=== PATIENT | male | born 2000 | race Caucasian/White ===

== ENCOUNTER 2021-03-14 04:55 | Emergency (ER) | payer OTHER, SELFPAY ==
--- NOTE | ~2021-03-14 | CT_ITS ---
EXAMINATION: CT abdomen pelvis w con INDICATION: Perirectal abscess TECHNIQUE: Computed tomographic images of the abdomen and pelvis were obtained after the administrati on of 100 cc of Omnipaque 350 intravenous contrast. The dose-length product (DLP) was 599.22 mGy-cm. Automated exposure control and iterative reconstruction technique were employed. COMPARISON: None available FINDINGS: The lung bases are clear. The heart size is normal. The liver, spleen, pancreas, gallbladde r, and adrenal glands are normal. The kidneys are unremarkable. No pathologically enlarged abdominal lymph nodes are identified. Mildly enlarged pelvic lymph nodes are likely reactive. There is no free intraperitoneal gas or evidence of bowel obstruction. There is a 6.0 x 3.7 x 6.4 cm subcutaneous absc ess of the pelvis overlying the sacrum. There is edematous stranding of the surrounding subcutaneous fat. IMPRESSION: 1. Subcutaneous abscess of the pelvis overlying the sacrum measuring up to 6.4 cm. Reviewed, dictated and finalized at location A.
[2021-03-14 04:57] VITALS: BP 135/83; PULSE 60; RESP 16; TEMP 36.8; O2SAT 95
--- NOTE | 2021-03-14 05:41 | ED.SKABFB ---
HPI - Skin/Abscess/Foreign Bdy General Chief complaint: Skin/Abscess/Foreign Body Stated complaint: pt has a boil on butt area Time Seen by Provider: 03/14/21 05:05 Source: patient Mode of arrival: ambulatory Limitations: no limitations History of Present Illness HPI narrative: Patient is a 20-year-old male complaining of a tender swollen red area on his buttocks and sacral area that started 5 days ago and worse today. Patient also states that he had a fever last night. MD complaint: abscess/boil Related Data Allergies Allergy/AdvReac Type Severity Reaction Status Date / Time No Known Allergies Allergy Verified 03/14/21 06:04 Review of Systems Review of Systems: All systems reviewed & are unremarkable except as noted in HPI and below Constitutional: Constitutional: Denies body ache(s), Denies excessive sweating, Denies fatigue, Denies headache(s), Denies lethargy, Denies malaise, Denies weakness and Denies weight loss Eyes: Eyes: Denies blurry vision, Denies change in vision and Denies loss of vision ENT: Denies dizziness, Denies ear discharge, Denies headache(s), Denies lip swelling, Denies epistaxis, Denies nasal congestion, Denies neck pain, Denies throat swelling and Denies tongue swelling Cardiovascular: Cardiovascular: Denies chest pain, Denies chest pain at rest, Denies chest pain with activity, Denies diaphoresis, Denies rapid heart rate, Denies edema, Denies irregular heart rhythm, Denies lightheadedness, Denies palpitations, Denies dyspnea and Denies dyspnea on exertion Respiratory: Respiratory: Denies chest congestion, Denies cough, Denies hemoptysis, Denies dyspnea and Denies dyspnea on exertion Gastrointestinal: Gastrointestinal: Denies abdominal pain, Denies melena, Denies hematochezia, Denies diarrhea, Denies nausea, Denies vomiting and Denies hematemesis Musculoskeletal: Musculoskeletal: Denies abnormal gait, Denies deformity, Denies joint swelling, Denies limited range of motion, Denies neck pain and Denies numbness Neurologic: Denies Abnormal speech present, Denies abnormal gait, Denies confusion, Denies dizziness, Denies headache(s), Denies focal weakness, Denies loss of vision, Denies numbness, Denies Other visual disturbances, Denies Sensory deficit (Neuro) and Denies weakness Psychiatric: Psychiatric: Denies confusion, Denies depression, Denies auditory hallucinations, Denies homicidal ideation and Denies suicidal ideation Endocrine: Endocrine: Denies cold intolerance, Denies excessive sweating, Denies fatigue, Denies heat intolerance and Denies palpitations Hematologic/Lymphatic: Hematologic/Lymphatic: Denies easy bleeding and Denies easy bruising Allergic/Immunologic: Allergic/Immunologic: Denies lip swelling, Denies throat swelling and Denies tongue swelling PMFSH Comments Past medical history: None Family history: None Social history: Non-smoker no EtOH or drug use Exam Const: General: cooperative, healthy appearing, comfortable, no acute distress, well developed, alert and awake; No confusion Orientation/consciousness: oriented to person, oriented to place, oriented to time, patient oriented x3 and No confusion Limitations: no limitations HENMT: Head: normal to inspection, normocephalic and atraumatic Ears: hearing grossly normal bilaterally, TM normal on the right and TM normal on the left General nose exam: Normal external nose present, Normal nares present and No nasal discharge present Face and sinus: normal facial exam Mouth: Yes Normal oral and palatal mucosa present, Yes lip normal, Yes tongue normal and Yes oropharynx normal Throat: posterior oropharynx normal, tonsils normal and uvula midline Eyes: General: appearance normal, both eyes and all related structures Pupils: Equal, round and reactive pupils present EOM: EOMs intact bilaterally Neck: Neck: normal visual inspection, full ROM, no lymphadenopathy and no meningeal signs Chest: Chest palpation & inspection: normal inspection of
[2021-03-14 06:12] LABS: Basophils Percent Auto 0.2 % (0.2-1.2); Eosinophils Percent Auto 0.2 % (0-4.4); Hematocrit 41.6 % (42.0-52.0); Hemoglobin 14.1 g/dL (14.0-18.0); Immature Granulocyte Absolute 0.08 K/mm3 (0.00-0.031); Immature Granulocyte Percent A 0.6 % (0-0.5); Lymphocytes Absolute Auto 0.78 K/mm3 (0.9-3.2); Lymphocytes Percent Auto 6.2 % (18.3-44.2); Mean Corpuscular HGB Conc 33.9 g/dl (32-36); Mean Corpuscular Hemoglobin 28.3 pg (26-34); Mean Corpuscular Volume 83.5 fl (80-100); Mean Platelet Volume 11.7 fl (7.4-10.4); Monocytes Absolute Auto 1.5 K/mm3 (0.1-0.6); Monocytes Percent Auto 11.7 % (2.6-8.5); Neutrophils Absolute Auto 10.3 K/mm3 (1.3-6.7); Neutrophils Percent Auto 81.1 % (45.5-73.1); Platelet Count Result 172 k/mm3 (150-375); Red Blood Count 4.98 M/mm3 (4.6-6.20); White Blood Count 12.7 K/mm3 (4.5-10.0)
[2021-03-14 06:21] LABS: Anion Gap 9 mmol/L (8-16); Blood Urea Nitrogen 11 mg/dL (8-21); Calcium 9.9 mg/dL (8.9-10.7); Carbon Dioxide 31 mmol/L (22-30); Chloride 100 mmol/L (98-107); Estimated Glomerular Filt Rate > 60; Glucose 126 mg/dL (75-110); Potassium 4.2 mmol/L (3.4-5.0); Sodium 140 mmol/L (134-143)
[2021-03-14] MEDS: CLINDAMYCIN 600 MG/D5W 50 ML 600 MG/50 ML PIGGYBACK 100 MG IVPB (06:56)
[2021-03-14 07:48] VITALS: BP 126/72; PULSE 68; RESP 16; TEMP 36.7; O2SAT 100
== END 2021-03-14 07:48 | disposition home or self-care (01) ==
PROVIDERS: Emergency Provider Emergency Medicine
DX: L02.31 Cutaneous abscess of buttock (principal); L03.317 Cellulitis of buttock
CPT/HCPCS: 10061; 36415; 74177; 80048; 83605; 85025; 87070; 87075; 87205; 96365; 99284; Q9967

== ENCOUNTER 2021-12-29 14:09 | Emergency (ER) | payer OTHER, SELFPAY ==
[2021-12-29 14:15] VITALS: BP 136/86; PULSE 90; RESP 12; TEMP 36.6; O2SAT 99
--- NOTE | 2021-12-29 14:24 | ED.WOUNDLAC ---
HPI - Wound/Laceration General Chief Complaint: Wound/Laceration Stated Complaint: boil Time Seen by Provider: 12/29/21 14:16 Source: patient Mode of arrival: ambulatory Limitations: no limitations History of Present Illness HPI narrative: This is a 21 year old male that presents to the ER for swelling in the pilonidal area. Noted over the last couple of days. Reports history of similar occurrence. Denies fever, erythema or drainage. Related Data Allergies Allergy/AdvReac Type Severity Reaction Status Date / Time No Known Allergies Allergy Verified 03/14/21 06:04 Review of Systems Review of Systems: CONSTITUTIONAL: Denies fever SKIN: Denies erythema All systems reviewed & are unremarkable except as noted in HPI and below PMFSH Past Medical History Medical History (Updated 12/29/21 @ 15:53 by Jeri Lockhart PA-C) No active medical problems Social History Social History (Updated 12/29/21 @ 14:26 by Jeri Lockhart PA-C) Substance use: never Exam Narrative: GENERAL: Well-appearing, well-nourished, and in no acute distress. HEAD: Normocephalic, atraumatic. EYES: EOMI. BACK: No erythema, edema or warmth in the area of concern EXTREMITIES: Normal range of motion. No edema. SKIN: Warm, dry, no rash. NEURO: No focal deficits. Alert and oriented x3. PSYCH: Normal mood and affect Course Vital Signs Vital signs: Vital Signs Temperature 97.8 F 12/29/21 14:15 Pulse Rate 90 12/29/21 14:15 Respiratory Rate 12 12/29/21 14:15 Blood Pressure 136/86 12/29/21 14:15 Pulse Oximetry 99 12/29/21 14:15 Temperature 97.8 F 12/29/21 14:15 Pulse Rate 90 12/29/21 14:15 Respiratory Rate 12 12/29/21 14:15 Blood Pressure 136/86 12/29/21 14:15 Pulse Oximetry 99 12/29/21 14:15 MDM - Wound/Laceration MDM Narrative Medical decision making narrative: Patient presents to the emergency department for inflammation and pain in the area of known pilonidal cyst. There is no overt edema or fluctuance to suggest abscess at this time. I did ultrasound the area and I do not see a fluid collection. Patient reports history of similar occurrence in the past for which he had the area drained. Will start patient on oral antibiotics and instructed patient he may need to follow up with a surgeon for removal of cyst. He was given warnings to return to the ER Critical Care Time Critical Care Time Critical Care Time: No Discharge Plan Discharge Clinical Impression: Pilonidal cyst Patient Disposition: Home, Self-Care Condition: Stable Instructions: Antibiotic Form, Pilonidal Cyst (ED) Additional Instructions: Return if symptoms worsen or concerns: any in redness, swelling, pain or fever over 101 Take antibiotics as directed. Clean the area with mild soap and water Follow up with primary care in the next 2-3 days for re-evaluation You may want to follow up with general surgery at some point to get the cyst removed Prescriptions: New cephalexin 500 mg capsule 500 mg PO Q6H 7 Days Qty: 28 RF: 0 metronidazole 500 mg tablet 500 mg PO Q8H 7 Days Qty: 21 RF: 0 No Action sulfamethoxazole-trimethoprim [Bactrim DS] 800-160 mg tablet 1 tablet PO Q12H 7 Days Qty: 14 RF: 0 Follow-up/Referrals: Harish Park MD [Physician] - 1 Week LAVALLETTE, [Primary Care Provider] -
== END 2021-12-29 16:06 | disposition home or self-care (01) ==
PROVIDERS: Emergency Provider Emergency Medicine
DX: L05.91 Pilonidal cyst without abscess (principal)
CPT/HCPCS: 99283

== ENCOUNTER 2022-06-03 17:30 | Emergency (ER) | payer OTHER, SELFPAY ==
[2022-06-03 17:55] VITALS: BP 123/81; PULSE 82; RESP 16; TEMP 36.7; O2SAT 100
--- NOTE | 2022-06-03 18:56 | ED.ALLEREA ---
HPI - Allergic Reaction General Chief complaint: Allergic Reaction Stated complaint: Stung by a bee Time Seen by Provider: 06/03/22 18:36 History of Present Illness HPI narrative: Patient is a 21-year-old male who presents ER with concerns for anaphylactic reaction to a bee sting. Reports he is outside when he was stung while weed eating. He reports he was stung 3 weeks ago and had no reaction. Today he developed a red rash to his extremities upper and lower. He also thinks he had a rash on his chest and back. He reports that he had some swelling to his face but unsure which part of his face. He had no wheezing or change in his voice. No difficulty swallowing. No previous history of anaphylaxis. He received some Decadron 10 mg an urgent care. He reports he took 50 mg of Benadryl prior to arrival. He reports onset that the rash is significant improved but he still has some small areas of rash on his arms. Related Data Allergies Allergy/AdvReac Type Severity Reaction Status Date / Time No Known Allergies Allergy Verified 03/14/21 06:04 Review of Systems Review of Systems: All systems reviewed & are unremarkable except as noted in HPI and below Constitutional: Constitutional: Denies chills, Denies fatigue and Denies fever(s) ENT: Denies nasal congestion and Denies sore throat Comments: Facial swelling Cardiovascular: Cardiovascular: Denies chest pain, Denies rapid heart rate and Denies radiating jaw, neck or arm pain Respiratory: Respiratory: Denies cough and Denies dyspnea Gastrointestinal: Gastrointestinal: Denies abdominal pain, Denies nausea and Denies vomiting Integumentary/Breasts: Skin/Breast: Reports erythema, Reports rash and Denies skin ulcer PMFSH Past Medical History Medical History (Updated 06/03/22 @ 19:19 by Tony Arthur MD) No active medical problems Surgical History Surgical History (Updated 06/03/22 @ 18:59 by Tony Arthur MD) H/O hernia repair Social History Social History (Updated 12/29/21 @ 14:26 by Jeri Lockhart PA-C) Substance use: never Exam Narrative: GENERAL: Well-appearing, well-nourished, and in no acute distress. HEAD: Normocephalic, atraumatic. ENT: Mucous membranes moist. Normal-appearing posterior oropharynx. No edema of the lips or tongue. CHEST: Clear to auscultation. No respiratory distress. HEART: Regular rate and rhythm. Normal peripheral pulses. ABDOMEN: Soft, nontender, nondistended. EXTREMITIES: Normal range of motion. No edema. SKIN: Warm, dry. Morbilliform rash volar aspect of the forearms bilaterally worse distally. No excoriations. Similar rash proximal thighs. NEURO: Alert and oriented x3. PSYCH: Normal mood and affect. Course Course Emergency Course: Patient resting comfortably. 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 I will also provide him with a EpiPen. Vital Signs Vital signs: Vital Signs Temperature 98.0 F 06/03/22 17:55 Pulse Rate 82 06/03/22 17:55 Respiratory Rate 16 06/03/22 17:55 Blood Pressure 123/81 06/03/22 17:55 Pulse Oximetry 100 06/03/22 17:55 Temperature 98.0 F 06/03/22 17:55 Pulse Rate 82 06/03/22 17:55 Respiratory Rate 16 06/03/22 17:55 Blood Pressure 123/81 06/03/22 17:55 Pulse Oximetry 100 06/03/22 17:55 Discharge Plan Discharge Clinical Impression: Allergic reaction Patient Disposition: Home, Self-Care Condition: Stable Instructions: Insect Bite or Sting (ED), Anaphylaxis (ED) Additional Instructions: If you are stung by bee again you should use your EpiPen as it is likely that you will have a more severe reaction like she had today. Your airway could close off or you could go into shock. Epinephrine is the only way to combat this. Return the ER if you are stung again. Return to the ER if you cannot breathe, you cannot swallow, you have worsening rash, you have additional concerns.
[2022-06-03 19:30] VITALS: BP 118/72; PULSE 70; RESP 18; O2SAT 99
== END 2022-06-03 19:31 | disposition home or self-care (01) ==
PROVIDERS: Emergency Provider Emergency Medicine
DX: T63.441A Toxic effect of venom of bees, accidental (unintentional), initial encounter (principal)
CPT/HCPCS: 99283